=== PATIENT | male | born 1980 | race Caucasian/White ===

== ENCOUNTER 2016-08-28 10:44 | Day surgery (SDC) | payer BC ==
--- NOTE | ~2016-08-28 | OP ---
Record Of Operation [place] [id number] [facility] [place]. [address] NAME: PIYUSH SOLITARIO : 80 STATUS : [facility] PAT#: [id number] AGE: 36 ADM/REG DATE : 08/28/16 MR#: [id number] REPORT SERV DATE: 08/31/16 DICTATED BY: JAYCE MARIA DATE: 08/28/16 REPORT STATUS : Draft TRANSCRIBED BY: MODL DATE: 08/28/16 DATE OF PROCEDURE: 08/28/2016 SURGEON: Jayce Maria MD OPERATIVE EMAIL MARKETING ASSISTANT: MAILE Jackson COMPLICATIONS: None. ESTIMATED BLOOD LOSS: Minimal. DISPOSITION: Stable to recovery room. ANESTHESIA: General. TOURNIQUET TIME: 0. PREOPERATIVE DIAGNOSES: 1. Right knee pain. 2. Complex buckle-handle medial meniscus tear. POSTOPERATIVE DIAGNOSES: 1. Right knee pain. 2. Complex buckle-handle medial meniscus tear. OPERATIVE PROCEDURES: 1. Right knee examination under anesthesia. 2. Right knee arthroscopy. 3. Partial bucket-handle medial meniscectomy. OPERATIVE NOTE: The diagnoses listed above as well as recommended surgical procedure and risks and benefits thereof discussed in full detail with Piyush Solitario and family in the afternoon of 08/28/2016. The patient and family asked appropriate questions, which were answered to their satisfaction. Informed consent was signed, witnessed, and placed on the chart. The right lower extremity was marked for confirmation and the patient was wheeled to the operative arena where general anesthesia was administered. The patient was placed in the supine position on the operative table with all nonoperative extremities well padded and secured for the duration of the case. The right lower extremity is examined under anesthesia and then prepped and draped in typical orthopedic sterile fashion. A surgical pause was performed confirming both the correct patient as well as the proper surgical site and procedure. All present were in agreement. The patient received appropriate antibiotics for perioperative antibiosis. All standard anatomical landmarks as well as arthroscopic portal sites were demarcated using a sterile marking pen. 10 mL of 0.25% Marcaine without epinephrine was injected in standard inferolateral and inferomedial parapatellar portal sites. An 11 blade was used to establish Record Of Operation [place] [id number] [facility] [place]. [address] NAME: PIYUSH SOLITARIO : [birth year] STATUS : [facility] PAT#: [id number] AGE: 36 ADM/REG DATE : 08/28/16 MR#: [id number] REPORT SERV DATE: 08/31/16 DICTATED BY: JAYCE MARIA DATE: 08/28/16 REPORT STATUS : Draft TRANSCRIBED BY: ALEJANDRO DATE: 08/28/16 the inferolateral parapatellar portal site through which an arthroscopic cannula and blunt obturator were inserted atraumatically into the intercondylar notch. A full diagnostic arthroscopy was performed. The suprapatellar pouch as well as both medial and lateral gutters were in good shape except for some mild synovitis. The lateral joint line was in excellent condition with the lateral meniscus showing no evidence for tear and the lateral tibial plateau and lateral femoral condyle in good condition without evidence for significant chondromalacia or other injury. The anterior and posterior cruciate ligaments were in good condition without evidence for significant injury. We then returned to the medial joint line. There was evidence for a large displaced bucket- handle medial meniscus tear. Unfortunately, this involved approximately 60% of the medial meniscus and the tissue was heavily macerated with both horizontal tears as well as a radial split involving the majority of the posterior horn. Unfortunately, this meniscal tissue did not look viable and did not to look amenable to repair. An arthroscopic scissor was used to trim the meniscus both posteriorly and anteriorly at its attachment site to the remainder of the meniscus. An arthroscopic shaver and biter were used to remove the inner bucket-handle medial meniscal fragment. Once this was done the remainder of the outer periphery was found to have evidence for further longitudinal tearing. A shaver was used to perform trimming here as well. Approximately 60% of the medial meniscus required resection due to injury. We do feel like there is a preservation of approximately 40% in the medial meniscus. The articular surface of the medial femoral condyle and medial tibial plateau showed mild abrasion from the meniscal fragment on any type of mobility. There was no significant chondromalacia otherwise noted. The knee was then taken back to full extension. The patellofemoral joint was entered. The patella and the trochlear groove both appeared to be in decent shape without evidence for significant chondromalacia or other injury. At this juncture, all arthroscopic instruments, excess fluid, and debris were removed from the suprapatellar pouch as well as both medial and lateral gutters. The portals were closed with 3-0 Monocryl in the subcuticular layers and Steri-Strips on the skin. A sterile dressing was secured with soft roll and Jeremy wrap. An ice pack was provided. The patient was then awakened from anesthesia without difficulty and transferred to the postanesthesia care unit in stable condition, where his postoperative exam was within normal limits. A lengthy discussion was held with the patient's family detailing all operative findings as well as procedures performed. All questions answered to their satisfaction. The patient was encouraged to work on range of motion exercises to the right lower extremity in an effort to increase circulation. He is allowed to weightbear as tolerated with crutch assist ambulation. The patient was educated as to the warning signs of deep venous thrombosis and instructed to notify us immediately should they occur. CCS/ALEJANDRO Record Of [address] [address] NAME: PIYUSH SOLITARIO : 80 STATUS : [facility] PAT#: [id number] AGE: 36 ADM/REG DATE : 08/28/16 MR#: [id number] REPORT SERV DATE: 08/31/16 DICTATED BY: JAYCE MARIA. DATE: 08/28/16 REPORT STATUS : Draft TRANSCRIBED BY: ALEJANDRO DATE: 08/28/16 Jayce Maria M.D. / [id number] CC: Jayce Maria M.D.
[~2016-08-28 10:44] MED LIST: BEN25 PO; MELATONIN5 M1 PO; MULTIPLE VIT PO
== END 2016-08-28 23:59 | disposition home health service (06) ==
LOC: MSC 10:44
PROVIDERS: Specialist
PROC: 0SBC4ZZ Excision of Right Knee Joint, Percutaneous Endoscopic Approach (ICD-10-PCS; principal; 2016-08-28 12:45)
DX: S83.211A Bucket-handle tear of medial meniscus, current injury, right knee, initial encounter (principal); M71.21 Synovial cyst of popliteal space [Baker], right knee; Z87.891 Personal history of nicotine dependence; Z98.890 Other specified postprocedural states
CPT/HCPCS: A9270-GY; J0690; J1170; J2250; J2405; J3010